=== PATIENT | female | born 1965 | race Caucasian/White ===

== ENCOUNTER 2023-02-21 02:15 | Day surgery (SDC) | payer BC, SELFPAY ==
[2023-02-18 10:19] VITALS: BMI 28.2
--- NOTE | 2023-02-18 10:47 | PC.NURSE ---
Report to the Outpatient Waiting Room, entrance under the green pavilion located off [facility], at time _0930 on date 02/21/23_. Planned Procedure Time: 1130. Time changes happen often and if your time is changed the preop area will call you the afternoon before. - You and your visitor will be asked to self-screen and do not enter if you have any COVID symptoms. - A mask is optional within the hospital at this time. Patients may have clear liquids (water, carbonated beverages, clear teas, apple juice) until 3 hours prior to surgery with a maximum of 20 ounces. - No food from midnight until time of surgery - Infants may have breast milk until 4 hours before surgery, formula 6 hours prior to surgery. - Children will be allowed to drink immediately following surgery. If applicable, please bring a bottle or sippy cup to assist with drinking. Juice, water, soda, and popsicles are readily available. For infants on formula, please bring formula the day of surgery. Pacifiers are allowed. Take the following medications with a SIP of water the morning of surgery: _gabapentin, doxycycline, escitalopram_ DO NOT STOP ANY OF YOUR OTHER PRESCRIPTION MEDICATIONS PRIOR TO SURGERY ?EXCEPT THE FOLLOWING Medications to discontinue per physician ___n/a Date to take last dose Please no make-up, nail khmer, hairspray, perfume, deodorant, or body powder the day of surgery. No jewelry (including any body piercings) or valuables the day of surgery, leave them at home. Please take a shower or bath the night before, or the morning of, surgery with an antibacterial soap. Wear comfortable, loose fitting clothing. Children are encouraged to wear pajamas. - Jewelry must be removed prior to entering the operating room. Rings and piercings that are not removed may be cut off. - The hospital will not accept responsibility for valuables. - Please leave all valuables, including medications, at home the day of surgery. If you are going home after surgery, a licensed gravel truck driver must drive you home. - NO public transportation without another adult if you receive anesthesia. - We recommend that an adult stay with you for 24 hours following discharge. - We also recommend that you do not drive, make important decision, drink alcoholic beverages, or take any drugs that were not prescribed by your health care provider for at least 24 hours after your discharge time. For Pediatric surgeries, we recommend two adults accompany the child home. Follow any additional instructions given to you from your surgeon. If you or anyone in your household have experienced Covid symptoms in the past week, please notify your surgeon or the nurse liaison at the phone number below for possible testing. Telephone instructions given to Sarah Isabel_and asked if any additional questions and then verbalized understanding. Patient advised to call surgeon office or pre surgery nurse liaison [phone] if any additional questions.
--- NOTE | 2023-02-19 22:03 | PM.IMHP ---
H&P: HPI History of Present Illness Date/Time: 02/19/23 22:03 Chief Complaint: urge incontinence and fecal incontinence Narrative: has an InterStim device. It has been in place for several years. Battery is nearing end of service. She is here today for full revision so she can have a new battery and be MRI compatible Review of Systems Review of Systems: All systems reviewed & are unremarkable except as noted in HPI and below PMFSH Family History Family History Father Hypertension Family history of type 2 diabetes mellitus Family history of heart disease in male family member before age 55, Onset Age: 40 Sibling Hypertension Family history of malignant neoplasm of uterus Grandparent Family history of lung cancer Family history of malignant neoplasm of breast Family history of type 2 diabetes mellitus Other Carcinoma of colon Cerebrovascular accident Family history of pancreatic cancer Social History Social History Smoking status: Never smoker Second hand tobacco smoke exposure: No Alcohol intake: current Substance use: never Living arrangements: with family Spiritual care concerns: No Meds Home Medications and Allergies Home Medications Medication Instructions Recorded Confirmed Type doxycycline hyclate 50 mg capsule 50 mg PO DAILY 02/18/23 02/18/23 History escitalopram oxalate 20 mg tablet 20 mg PO DAILY 02/18/23 02/18/23 History gabapentin 600 mg tablet 600 mg PO BID 02/18/23 02/18/23 History irbesartan 75 mg tablet 75 mg PO DAILY 02/18/23 02/18/23 History omeprazole 40 mg capsule,delayed 40 mg PO BID 02/18/23 02/18/23 History release Allergies Allergy/AdvReac Type Severity Reaction Status Date / Time Sulfa (Sulfonamide Allergy Unknown Hives Verified 02/18/23 10:37 Antibiotics) Exam Narrative: no acute distress normal breathing alert and oriented x3 Assessment and Plan Assessment and plan (1) Urge incontinence: Code(s): N39.41 - Urge incontinence Status: Acute Assessment and Plan: InterStim removal and replacement. Understands risks of bleeding, infection, decreased efficacy, incomplete device removal. Agrees to proceed
--- NOTE | ~2023-02-21 | XR_ITS ---
EXAMINATION: XR fluoroscopy no charge DATE: 02/21/2023 13:05 INDICATION: Left-sided neurostimulator removal and replacement on the right TECHNIQUE: 3 fluoroscopic images of the sacrum were obtained during procedure performed by Dr. Karl guerrero. Radiologist was not present for the imaging or procedure. The amount of fluoroscopy time used duri ng this procedure was 0.4 minutes. COMPARISON: None. FINDINGS: Initial image demonstrates the tip of a metallic probe projecting over a left-sided sacral nerve root stimulator lead. Subsequent image demonstrates removal of the left-sided lead and placement of a new right-sided stimulator lead extending through the right S3 neural foramen. Lap sponge markers likely for packing of a lucent soft tissue defect projecting posterior to the sacrum on the lateral project ion likely representing the pocket for the stimulator device. IMPRESSION: 1. Fluoroscopy utilized during removal of a left-sided similar and placement of a new right-sided mary rostimulator. See procedure note for further detail. Reviewed, dictated and finalized at location A. IMPRESSION: 1. Fluoroscopy utilized during removal of a left-sided similar and placement of a new right-sided neurostimulator. See procedure note for further detail.
--- NOTE | 2023-02-21 07:19 | WPDHPUPDATE1 ---
History and Physical Update Update Date/Time: 02/21/23 07:19 History and Physical has been reviewed, including an updated exam of the patient. There are NO changes in the patient's condition. Risks, benefits, and alternatives have been discussed and questions answered. Patient agrees to proceed with procedure.
--- NOTE | 2023-02-21 08:43 | P.PNAN_ITS ---
Anes - Initial Pre Proc Eval Procedure: Operation Date: 02/21/23 12:00 Proposed Procedures p Neurostimulator Removal and Replacement - Davide Olivera MD Date/Time: 02/21/23 08:43 Surgeon: Davide Olivera MD Pre Op Diagnosis: sensory urge incont Patient Data Age: 58 Gender: F Height: 1.57 m Weight: 70 kg Allergies Allergy/AdvReac Type Severity Reaction Status Date / Time Sulfa (Sulfonamide Allergy Severe Hives Verified 02/21/23 10:20 Antibiotics) Home Medications Medication Instructions Recorded Confirmed Type doxycycline hyclate 50 mg capsule 50 mg PO DAILY 02/18/23 02/21/23 History escitalopram oxalate 20 mg tablet 20 mg PO DAILY 02/18/23 02/21/23 History gabapentin 600 mg tablet 600 mg PO BID 02/18/23 02/21/23 History irbesartan 75 mg tablet 75 mg PO DAILY 02/18/23 02/21/23 History omeprazole 40 mg capsule,delayed 40 mg PO BID 02/18/23 02/21/23 History release Patient hx anesthesia problems: none Family hx anesthesia problems: none Results Review: All pre-operative results and documents have been reviewed as part of the pre- operative evaluation. [facility] Past Medical History Medical History (Updated 02/21/23 @ 08:44 by Tristian Devi DO) GERD (gastroesophageal reflux disease) Hypertension Family History Family History Father Hypertension Family history of type 2 diabetes mellitus Family history of heart disease in male family member before age 55, Onset Age: 40 Sibling Hypertension Family history of malignant neoplasm of uterus Grandparent Family history of lung cancer Family history of malignant neoplasm of breast Family history of type 2 diabetes mellitus Other Carcinoma of colon Cerebrovascular accident Family history of pancreatic cancer Social History Social History Smoking status: Never smoker Second hand tobacco smoke exposure: No Alcohol intake: current Substance use: never Living arrangements: with family Spiritual care concerns: No Anes - Eval Final PreProcedure Day of Procedure 02/21/23 08:43 Patient weight: overweight Heart: regular rate and rhythm Lungs: clear to auscultation Airway: Mallampati scale class II Neurological: alert and oriented Last oral intake: >/= 8 hours ASA classification: II Emergent: no Anesthetic plan: proceed Anesthesia type and monitoring: general GIVS and standard monitoring Results Review: All pre-operative results and documents have been reviewed as part of the pre- operative evaluation. Informed Consent: The patient's anesthetic plan and its attendant risks and benefits were discussed with the patient/family/POA. Questions were solicited and answers provided to the satisfaction of the patient/family/POA.
[2023-02-21 10:21] VITALS: BP 132/66; PULSE 71; RESP 20; TEMP 36.8; O2SAT 98
[2023-02-21] MEDS: LACTATED RINGERS 1,000 ML 30 ML IV CONT (10:50)
--- NOTE | 2023-02-21 12:01 | W.PM.PROC2 ---
Procedure Note - Detailed Date of Procedure 02/21/23 Pre-op Diagnosis sensory urge incont Post-op Diagnosis Same Procedure Performed removal of previously placed sacral stimulator 09226 Implantation of sacral lead 32753 Placement of implantable pulse generator 70611 Complex neurostimulator programming impedance check 40597 Surgeon Davide Olivera MD Anesthesia MAC and Local Indications This is a patient with refractory urge urinary incontinence. she has InterStim device in place. Her battery is nearing end of service. She like be MRI compatible. He is here today for full revision. She understands risks of bleeding, infection, lack of efficacy, device breakage with incomplete removal. She agrees to proceed Findings See dictated Description of Procedure They were correctly identified and informed consent was obtained. There brought to the operating room. There placed in the prone position. There given appropriate perioperative antibiotics. A time-out performed. I anesthetized the skin over the previous pulse generator. I and sized the skin. I located the pulse generator explanted. I then anesthetized the skin with sacral lead. I located the sacral lead. I removed this Entirely I used fluoroscopy to fabrice out my sacral landmarks in the AP and the lateral orientation. I anesthetized the skin. I entered the S3 foramen. I monitored the needle with fluoroscopy. I got appropriate Jacy and toe response at a low threshold. I made a skin sherlyn. I placed a stylet. I placed the lead introducer sheath. I then placed and deployed to my lead. I got appropriate responses again at a low threshold. I tunneled the lead towards the previously made pocketpocket. Appropriate connections were made between the lead and the battery. It was placed in the pocket. the device was programmed and impedances were checked and found to be normal. I irrigated out all wounds. I ensured hemostasis. I closed the subcutaneous tissues with 2 Vicryl. I closed the skin with 4 0 Vicryl. Glue was applied. There then awakened and transferred to the PACU in stable condition. Implants Sacral neurostimulator Estimated Blood Loss 5 Drains No Packing No Pathology None sent Condition Stable Disposition PACU
[2023-02-21] MEDS: ceFAZolin 2 GM/D5W 50 ML 2 GM/50 ML BAG IVPB (12:28)
[2023-02-21] MEDS: ceFAZolin SODIUM 1 GM VIAL (12:44)
[2023-02-21 13:10] VITALS: BP 129/73; PULSE 71; RESP 16; O2SAT 100
[2023-02-21 13:40] VITALS: BP 134/72; PULSE 70; RESP 16
== END 2023-02-21 14:09 | disposition home or self-care (01) ==
PROVIDERS: PCP Family Medicine; Visit Provider Urology
PROC: (CPT 64590; principal; 2023-02-21 12:00)
DX: Z45.42 Encounter for adjustment and management of neurostimulator (principal); N39.41 Urge incontinence; I10 Essential (primary) hypertension; K21.9 Gastro-esophageal reflux disease without esophagitis
CPT/HCPCS: 64590; 64561; 99199; C1767; C1778; C1787; J0690; J2250; J2704; J3010; J7120